=== PATIENT | female | born 1965 | race Caucasian/White ===

== ENCOUNTER 2024-04-30 15:54 | Emergency (ER) | payer OTHER, SELFPAY ==
[2024-04-30 16:06] VITALS: BP 137/84
[2024-04-30 16:17] LABS: % Basophils 0.6 % (0-2); % Eosinophils 3.1 % (0-6); % Immature Granulocytes 0.2 % (0-0.5); % Monocytes 7.7 % (1.7-9.3); % Neutrophils 73.4 % (42.2-75.2); Absolute Eosinophils 0.2 10^3/uL (0-0.7); Absolute Lymphocytes 0.8 10^3/uL (1.2-3.4); Absolute Monocytes 0.4 10^3/uL (0.1-0.6); Absolute Neutrophils 3.8 10^3/uL (1.4-6.5); Hematocrit 39.6 % (37.0-47.0); Hemoglobin 14.3 g/dL (12.0-16.0); Mean Corp Hgb Conc. 36.1 g/dL (33.0-37.0); Mean Corpuscular Hgb 30.6 pg (27.0-31.0); Mean Corpuscular Volume 84.8 fL (81.0-99.0); Mean Platelet Volume 10.6 fL (7.4-10.4); Nucleated Red Blood Cells % 0 %; Platelet Count 252 10^3/uL (130-400); Red Blood Cell Count 4.67 10^6/uL (4.20-5.40); Red Cell Dist. Width 13.2 % (11.5-14.5); White Blood Cell Count 5.2 10^3/uL (4.8-10.8)
[2024-04-30 16:40] LABS: ALT (SGPT) 21 U/L (0-35); AST (SGOT) 32 U/L (14-36); Albumin 4.7 g/dl (3.5-5.0); Alkaline Phosphatase 51 U/L (38-126); Blood Urea Nitrogen 23 mg/dl (7-17); Calcium 9.7 mg/dl (8.4-10.2); Carbon Dioxide 25 mmol/L (22-30); Chloride 104 mmol/L (98-107); Glucose 120 mg/dl (70-99); Potassium 3.2 mmol/L (3.5-5.1); Sodium 138 mmol/L (135-145); Total Bilirubin 0.6 mg/dl (0.2-1.3); Total Protein 6.9 g/dl (6.3-8.2); eGFR > 60.00
[2024-04-30 16:50] LABS: Troponin I < 0.012 ng/ml
[2024-04-30 17:55] VITALS: BMI 27.3
[2024-04-30 17:58] VITALS: BP 126/84
[2024-04-30 18:00] VITALS: BP 125/81
[2024-04-30 19:00] VITALS: BP 157/98
[2024-04-30 19:05] VITALS: BP 144/95
[2024-04-30 19:44] LABS: Troponin I < 0.012 ng/ml
[2024-04-30] MEDS: KCL ELIXIR 40 MEQ PO (19:58)
--- NOTE | 2024-04-30 19:58 | ED.GENMED ---
History of Present Illness
General
Chief Complaint: Chest Pain
Source: patient and family
Time Seen by Provider: 04/30/24 18:19
History of Present Illness
History of Present Illness:
58-year-old female presents with pain in the left upper chest that started about an hour prior to arrival. States first noticed that her back. Then came forward. Patient was weeding outside today when she first noticed it. No numbness or
tingling. No radiation otherwise of the pain. No nausea vomiting or shortness of breath. Patient exercises very frequently and tolerates exercise very well. She has not had any recent chest pain or shortness of breath or exercise intolerance.
No palpitations. No leg pain. No leg swelling. No recent travel. No family history of early heart disease or DVT or PE.
Past History
Past History
ED Past Medical History: HTN
ED Past Surgical History: Gynecological
Social History
Tobacco: Non-smoker
Alcohol: None
Drug: None
Living: with family
Employment: Employed
Family History
Family History: Hypertension
Phy Exam
Physical Exam
Physical Exam:
CONSTITUTIONAL Patient alert and oriented to person, place and time. Well-appearing. Vital signs reviewed.
HEAD atraumatic, normocephalic.
EYES eyelids normal to inspection, Pupils equally round and reactive to light, Extraocular muscles intact, Conjunctiva normal, Sclera normal.
NECK normal range of motion, Trachea midline, no jugular venous distention.
RESPIRATORY CHEST No respiratory distress noted, Chest expansion equal, Bilateral breath sounds clear.
CARDIOVASCULAR regular rate and rhythm, Heart sounds normal.
ABDOMEN abdomen nontender, Bowel sounds normal. No distention.
BACK normal inspection, no obvious deformities
UPPER EXTREMITY range of motion normal, Motor strength normal, no cyanosis, no edema.
LOWER EXTREMITY range of motion normal, Motor strength normal, no cyanosis, no edema.
NEURO Speech normal, No focal motor deficits, [place] coma scale 15, Memory normal, Cranial Nerves intact to screening exam.
SKIN skin warm, dry, and normal in color.
PSYCHIATRIC patient oriented to person place and time, Normal affect.
Scores
Heart Score for Chest Pain Patients
STEMI patient?: No
History: Slightly or Non-Suspicious
ECG: Normal
Age: >45 - <65 years
Risk Factors: 1 or 2 Risk Factors
Troponin: </= Normal Limit
Heart Score for Chest Pain Patients: 2
Heart Score Risk: 2.5% MACE over next 6 weeks
Course
Orders/Labs/Results
Orders:
Orders
04/30/24 15:55
EKG [Electrocardiogram (*1)] Urgent
Reason for Study: Chest Pain
EKG- Treatment ONCE
04/30/24 16:12
CBC/With Diff [Complete Blood Count/With Diff] Urgent
CMP [Comprehensive Metabolic Panel] Urgent
Troponin I Urgent
04/30/24 18:26
CR Chest - 2 Views Urgent
Comment:
Reason For Exam: cp
04/30/24 19:08
Troponin I Urgent
04/30/24 19:51
Potassium Chloride 10% Elixir [KCl Elixir] 40 meq PO NOW STA
Abnormal Lab Results
04/30/24
16:12
MPV 10.6 H fL
(7.4-10.4)
Absolute Lymphs (auto) 0.8 L 10^3/uL
(1.2-3.4)
Lymphocytes % 15.0 L %
(20.5-51.1)
Potassium 3.2 L mmol/L
(3.5-5.1)
BUN 23 H mg/dl
(7-17)
Glucose 120 H mg/dl
(70-99)
04/30/24 16:12
04/30/24 16:12
Vital Signs
Initial and Last Documented VS:
Initial Vital Signs
Temp Pulse Resp BP Pulse Ox
97.8 F 57 18 137/84 100
04/30/24 16:06 04/30/24 16:06 04/30/24 16:06 04/30/24 16:06 04/30/24 16:06
Last Documented Vital Signs
Temp Pulse Resp BP Pulse Ox
97.8 F 53 18 158/97 96
04/30/24 16:06 04/30/24 20:15 04/30/24 20:00 04/30/24 20:00 04/30/24 20:15
MDM/Problems Addressed
MDM/Problems Addressed:
Atypical chest pain
*Radiology
Radiology exam reviewed: preliminary read by ED provider and all reviewed NAD by ED Provider
*Pulse Oximetry
Patient hypoxic: no
*EKG
Interpreted by ED Provider?: Yes
Interpretation: normal
Rate: normal
Rhythm: sinus
Wellpinit: left axis deviation
Interval: normal interval
QRS Pattern: other (Incomplete right bundle branch block)
Ischemia: no ischemia
*Greenhouse Worker Interpretation
Rate: normal
Interpretation: normal
Rhythm: sinus
*Critical Care Note
Total Time (30-74mins, 75-104mins- exclusive of procedures): Not Applicable
Data Reviewed
Source: patient
Further Testing Considered But Not Given:
Consider CTA but patient does not have any pleuritic pain. No tachycardia, tachypnea or hypoxia. No PE risk
Patient Management
Escalation/DeEscalation of care consider admission/obs:
Patient appears quite well. Troponin negative x 2. EKG grossly unremarkable for ischemic changes. No significant CAD or PE risks. Okay for discharge outpatient PCP follow-up.
ED Attending Note
-
Portions of this chart may have been created with voice recognition software.� Occasional wrong word or��sound alike� substitutions may have occurred due to the inherent limitations of voice recognition software.
Discharge Plan
Departure
Patient Disposition: Home (Routine Discharge)
Date of Disposition: 04/30/24
Time of Disposition: 20:02
Patient with high blood pressure during this ER visit?: Yes
Discharge Problem:
Atypical chest pain
Instructions: Chest Pain CBC Follow Up
Prescriptions:
No Action
hydrochlorothiazide 25 MG tablet
25 mg PO DAILY
potassium chloride 20 MEQ tablet,ER particles/crystals
20 meq PO BID Qty: 10 0RF
Referrals:
Kendy Jerez PA-C [Family Provider] -
Activity Restrictions/Additional Instructions:
Please see cardiology in the next 48 hours for reevaluation. Return immediately for worsening pain, shortness breath, palpitations, sweating, nausea, weakness of any kind, numbness, tingling or any other concerns.
Cardiology has been notified and a follow up appointment has been requested. Someone will call you on the next business day to schedule a follow up appointment.
Interventions
Interventions:
*Risk Screen - Suicide Last Done: 04/30/24 18:16
*General Assessment Last Done: 04/30/24 18:16
*Neglect/Abuse Screening Last Done: 04/30/24 18:16
ED- Fall Risk Assessment Last Done: 04/30/24 20:26
*ED COVID-19 Vaccine History Last Done: 04/30/24 20:26
*Nursing Disposition Last Done: 04/30/24 20:26
ED- Cardiac Assessment Last Done: 04/30/24 17:57
Discharge Date and Time
Discharge Date/Time: 04/30/24 20:35
Print Language: TUVALU[place]
[2024-04-30 20:00] VITALS: BP 158/97
== END 2024-04-30 20:35 | disposition home or self-care (01) ==
LOC: EMR 15:54
PROVIDERS: EMERGENCY PHYSICIAN Emergency Medicine; FAMILY PHYSICIAN Physician Assistant Medical
DX: R07.89 Other chest pain (principal); I45.10 Unspecified right bundle-branch block; I10 Essential (primary) hypertension; Z88.0 Allergy status to penicillin; Z88.8 Allergy status to other drugs, medicaments and biological substances; Z91.018 Allergy to other foods
CPT/HCPCS: 99283; 71046; 80053; 84484; 85025; 93005